=== PATIENT | male | born 1985 | race Caucasian/White ===

== ENCOUNTER 2020-03-13 18:18 | Emergency (ER) | payer BC ==
--- NOTE | 2020-03-13 18:55 | EDM.PDOC ---
ED HPI GENERAL MEDICAL PROBLEM - General Chief Complaint: Chest Pain Stated Complaint: DISCOMFORT IN CHEST/WEAKNESS Time Seen by Provider: 03/13/20 18:24 Source of Information: Reports: Patient History Limitations: Reports: No Limitations - History of Present Illness INITIAL COMMENTS - FREE TEXT/NARRATIVE: Patient is a 34 year old male presenting to the ER with c/o left sided chest pain. Symptoms began as a dull ache in his left upper chest while patient was at work this morning. He states that he was able to stretch and that pain would go away for the most part, but would return after aprox 1 hour. This evening he experienced a recurrence of the pain, but states that it was more spasming in nature and more localized to his axilla. He did some stretching exercises and then had an episode of weakness of his left arm. He took to ASA prior to coming to ER but is unsure the dose of these tabs. He denies any cardiac history. 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 He has had no SOB, diaphoresis, nausea, or vomiting. Left Upper Chest Pain Score (Numeric/FACES): 3 - Related Data Allergies Allergy/AdvReac Type Severity Reaction Status Date / Time amoxicillin Allergy Severe Rash Verified 03/13/20 18:35 Penicillins Allergy Severe Rash Verified 03/13/20 18:35 Sulfa (Sulfonamide Allergy Severe Rash Verified 03/13/20 18:35 Antibiotics) Home Meds: Home Meds . [No Known Home Meds] 03/13/20 [History] ED ROS GENERAL - Review of Systems Review Of Systems: See Below Constitutional: Reports: No Symptoms. Denies: Fever, Chills, Weakness HEENT: Reports: No Symptoms Respiratory: Reports: No Symptoms. Denies: Shortness of Breath, Cough Cardiovascular: Reports: Chest Pain. Denies: Dyspnea on Exertion, Lightheadedness, Syncope Endocrine: Reports: No Symptoms GI/Abdominal: Reports: No Symptoms : Reports: No Symptoms Musculoskeletal: Reports: Other (transient left arm weakness) Skin: Reports: No Symptoms Neurological: Reports: No Symptoms Psychiatric: Reports: No Symptoms Hematologic/Lymphatic: Reports: No Symptoms Immunologic: Reports: No Symptoms ED EXAM, GENERAL - Physical Exam Exam: See Below General Appearance: Alert, WD/WN, No Apparent Distress Respiratory/Chest: No Respiratory Distress, Lungs Clear, Normal Breath Sounds, No Accessory Muscle Use, Chest Non-Tender Cardiovascular: Normal Peripheral Pulses, Regular Rate, Rhythm, No Edema, No Gallop, No JVD, No Murmur, No Rub GI/Abdominal: Normal Bowel Sounds, Soft, Non-Tender, No Organomegaly, No Distention, No Abnormal Bruit, No Mass Extremities: Normal Inspection, Normal Range of Motion, Non-Tender, Normal Capillary Refill, No Pedal Edema Neurological: Alert, Oriented, CN II-XII Intact, Normal Cognition, Normal Gait, Normal Reflexes, No Motor/Sensory Deficits Psychiatric: Normal Affect, Normal Mood Skin Exam: Warm, Dry, Intact, Normal Color, No Rash EKG INTERPRETATION EKG Date: 03/13/20 Time: 18:24 Rhythm: NSR Rate (Beats/Min): 61 [place]: RAD-Right [place] Deviation (borderline) P-Wave: Present QRS: Normal ST-T: Normal QT: Normal Comparison: NA - No Prior EKG Course - Vital Signs Last Recorded V/S: Last Vital Signs Temp 96.7 F L 03/13/20 18:26 Pulse 67 03/13/20 18:26 Resp 18 03/13/20 18:26 BP 162/97 H 03/13/20 18:26 Pulse Ox 100 03/13/20 18:26 - Orders/Labs/Meds Orders: Active Orders 24 hr Category Date Time Status EKG Documentation Completion [RC] STAT Care 03/13/20 18:50 Active Chest 2V [CR] Stat Exams 03/13/20 18:50 Taken Labs: Laboratory Tests 03/13/20 03/13/20 03/13/20 Range/Units 18:45 18:45 18:45 WBC 5.15 (4.23-9.07) K/mm3 RBC 4.48 L (4.63-6.08) M/mm3 Hgb 12.8 L (13.7-17.5) gm/dl Hct 38.7 L (40.1-51.0) % MCV 86.4 (79.0-92.2) fl MCH 28.6 (25.7-32.2) pg MCHC 33.1 (32.2-35.5) g/dl RDW Std Deviation 38.1 (35.1-43.9) fL Plt Count 275 (163-337) K/mm3 MPV 9.3 L (9.4-12.3) fl Neut % (Auto) 46.9 (34.0-67.9) % Lymph % (Auto) 43.1 (21.8-53.1) % Stone % (Auto) 8.0 (5.3-12.2) % Eos % (Auto) 1.6 (0.8-7.0) Baso % (Auto) 0.4 (0.1-1.2) % Neut # (Auto) 2.42 (1.78-5.38) K/mm3 Lymph # (Auto) 2.22 (1.32-3.57) K/mm3 Stone # (Auto) 0.41 (0.30-0.82) K/mm3 Eos # (Auto) 0.08 (0.04-0.54) K/mm3 Baso # (Auto) 0.02 (0.01-0.08) K/mm3 D-Dimer, Quantitative < 0.19 L (0.19-0.50) mg/L Sodium 137 (136-145) mEq/L Potassium 4.0 (3.5-5.1) mEq/L Chloride 101 (98-107) mEq/L Carbon Dioxide 27 (21-32) mEq/L Anion Gap 13.0 (5-15) BUN 16 (7-18) mg/dL Creatinine 1.2 (0.7-1.3) mg/dL Est Cr Clr Drug Dosing 92.38 mL/min Estimated GFR (MDRD) > 60 (>60) mL/min BUN/Creatinine Ratio 13.3 L (14-18) Glucose 92 (74-106) mg/dL Calcium 8.8 (8.5-10.1) mg/dL Total Bilirubin 0.3 (0.2-1.0) mg/dL AST 22 (15-37) U/L ALT 26 (16-63) U/L Alkaline Phosphatase 70 (46-116) U/L Troponin I < 0.017 (0.00-0.056) ng/mL C-Reactive Protein <0.2 (<1.0) mg/dL Total Protein 7.4 (6.4-8.2) g/dl Albumin 4.1 (3.4-5.0) g/dl Globulin 3.3 gm/dL Albumin/Globulin Ratio 1.2 (1-2) - Re-Assessments/Exams Free Text/Narrative Re-Assessment/Exam: Patient is a 34-year-old male presenting to the emergency department with complaints of left-sided chest discomfort that began earlier this morning. This evening he had a return of the discomfort and after doing some stretching exercises, he felt some weakness in his left arm. That has since resolved. He does have some very mild discomfort in his left chest at this time. Denies any shortness of breath, diaphoresis, nausea, or vomiting. My suspicion is that this is musculoskeletal in nature, however we will rule out cardiac. Ordered a CBC, CMP, CRP, d-dimer, troponin, EKG, and a two-view chest x-ray. Patient did take aspirin prior to coming to the ER. 03/13/20 19:57 Hematology was grossly unremarkable. Troponin was negative, d-dimer was negative, CRP was negative, and electrolytes were all normal. EKG was negative for any acute ischemia. Chest x-ray was normal. Discussed with patient that his pain is likely musculoskeletal in nature. Recommend ibuprofen as needed for discomfort. Apply heat to the area may also help to relax the muscles. Return to the ER for any new or worsening symptoms. Discharge instructions as documented. Departure - Departure Time of Disposition: 20:00 Disposition: Home, Self-Care 01 Condition: Good Clinical Impression: Atypical chest pain Instructions: Chest Wall Pain, [id number] Referrals: PCP,None [Primary Care Provider] - Forms: ED Department Discharge Additional Instructions: You were seen in the emergency department this evening for intermittent left sided chest pain throughout the day, as well as an episode of weakness of your left arm this evening. Your workup included blood work, an EKG of your heart, and a chest xray. Your workup was completely normal. You do not have a blood clot in your lungs and you are not having a heart attack. Your electrolytes, kidney function, and liver function were all normal. As we discussed, your pain is likely musculoskeletal in nature. The weakness of your arm is likely related to nerve impingement due to muscle spasms/inflammation. Recommend over the counter ibuprofen to treat the pain and discomfort. Apply heat to the area can also help to relax the muscles. Continue to do stretching exercises as well. Return to the ER for an new or worsening symptoms of concern. Sepsis Event Note (ED) - Evaluation Sepsis Screening Result: No Definite Risk - Focused Exam Vital Signs: Vital Signs Temp Pulse Resp BP Pulse Ox 03/13/20 18:26 96.7 F L 67 18 162/97 H 100 - My Orders Last 24 Hours: My Active Orders 03/13/20 18:50 EKG Documentation Completion [RC] STAT Chest 2V [CR] Stat - Assessment/Plan Last 24 Hours: My Active Orders 03/13/20 18:50 EKG Documentation Completion [RC] STAT Chest 2V [CR] Stat
--- NOTE | 2020-04-23 11:10 | CR ---
PROCEDURE INFORMATION: Exam: XR Chest, 2 Views Exam date and time: 03/13/2020 7:25 PM Age: 34 years old Clinical indication: Chest pain; Type not specified TECHNIQUE: Imaging protocol: XR of the chest Views: 2 views. COMPARISON: No relevant prior studies available. FINDINGS: Lungs: Unremarkable. No consolidation. Pleural space: Unremarkable. No pleural effusion. No pneumothorax. Heart/Mediastinum: Unremarkable. No cardiomegaly. Bones/joints: Unremarkable. IMPRESSION: No acute findings. Thank you for allowing us to participate in the care of your patient. Dictated and Authenticated by: Eusebio Lay MD 04/22/2020 4:45 PM Central Time ([place] & [place]) [facility]
== END 2020-03-13 20:20 | disposition home or self-care (01) ==
LOC: JD.ED 18:18
DX: R07.89 Other chest pain (principal); Z88.1 Allergy status to other antibiotic agents; Z88.0 Allergy status to penicillin; Z88.2 Allergy status to sulfonamides
CPT/HCPCS: 36415; 71046; 71046-26; 80053; 84484; 85025; 85379; 86140; 93005; 93010; 99283; 99285-25